=== PATIENT | male | born 2000 | race Caucasian/White ===

== ENCOUNTER 2019-07-16 19:03 | Emergency (ER) | payer BC, OTHER ==
[~2019-07-16] VITALS: Ht 175.3 cm; Wt 86.2 kg
[~2019-07-16 19:03] MED LIST: ALBIPROI; ALBIPROI INH; ALBU90OI; PSYL5.85P; Percocet 5-3251 EACH PO; [UNRECOGNIZED DRUG - REMARK]
[2019-07-16] MEDS ORDERED: Bactrim Ds Tab1 EACH PO (19:26)
== END 2019-07-16 19:32 | disposition home or self-care (01) ==
LOC: ER 19:03
DX: L02.213 Cutaneous abscess of chest wall (principal); L03.313 Cellulitis of chest wall; Z88.5 Allergy status to narcotic agent; Z88.0 Allergy status to penicillin; Z88.1 Allergy status to other antibiotic agents
CPT/HCPCS: 99283; A9270-GY

== ENCOUNTER 2019-07-20 18:24 | Emergency (ER) | payer BC, OTHER ==
[~2019-07-20] VITALS: Ht 177.8 cm; Wt 77.1 kg
[~2019-07-20 18:24] MED LIST changes: +Bactrim Ds Tab1 EACH PO
== END 2019-07-20 20:30 | disposition home or self-care (01) ==
LOC: ER 18:24
DX: T40.1X1A Poisoning by heroin, accidental (unintentional), initial encounter (principal); J45.909 Unspecified asthma, uncomplicated; Z88.0 Allergy status to penicillin; Z88.5 Allergy status to narcotic agent; Z88.1 Allergy status to other antibiotic agents
CPT/HCPCS: 99284

== ENCOUNTER 2019-09-09 01:52 | Emergency (ER) | payer BC, OTHER ==
[~2019-09-09] VITALS: Ht 175.3 cm; Wt 81.7 kg
[2019-09-09] MEDS ORDERED: Vibramycin100 MG PO (02:14)
== END 2019-09-09 02:38 | disposition home or self-care (01) ==
LOC: ER 01:52
DX: L02.211 Cutaneous abscess of abdominal wall (principal); Z88.5 Allergy status to narcotic agent; Z88.0 Allergy status to penicillin
CPT/HCPCS: 10061; 99283-25

== ENCOUNTER 2020-03-05 01:00 | Emergency (ER) | payer BC, OTHER ==
[~2020-03-05] VITALS: Ht 170.2 cm; Wt 77.1 kg
[~2020-03-05 01:00] MED LIST changes: +Vibramycin100 MG PO
[2020-03-05 02:13] LABS: BASOPHILS ABSOLUTE AUTO 0.04 K/mm3 (0.00-0.23); BASOPHILS PERCENT AUTO 0 % (0-2); EOSINOPHILS ABSOLUTE AUTO 0.17 K/mm3 (0.00-0.68); EOSINOPHILS PERCENT AUTO 1 % (0-6); Hematocrit 37.3 % (37.0-53.0); Hemoglobin 12.3 g/dL (13.5-17.5); IMMATURE GRAN ABSOLUTE AUTO 0.02 K/mm3 (0.00-0.10); IMMATURE GRAN PERCENT AUTO 0 % (0-1); LYMPHOCYTES ABSOLUTE AUTO 3.03 K/mm3 (0.84-5.20); LYMPHOCYTES PERCENT AUTO 24 % (21-46); MONOCYTES ABSOLUTE AUTO 1.24 K/mm3 (0.16-1.47); MONOCYTES PERCENT AUTO 10 % (4-13); Mean Corpuscular HGB 29.1 pg (26.0-34.0); Mean Corpuscular Volume 88 fL (80-100); Mean Platelet Volume 10.3 fL (9.1-12.4); NEUTROPHILS ABSOLUTE AUTO 8.12 K/mm3 (1.96-9.15); NEUTROPHILS PERCENT AUTO 64 % (41-73); Platelet Count 295 K/mm3 (150-400); RDW Coefficient Variation 12.4 % (11.7-14.2); RDW Standard Deviation 40.2 fL (35.1-46.3); Red Blood Cell Count 4.22 M/mm3 (4.30-5.90); White Blood Cell Count 12.62 K/mm3 (4.00-11.30)
[2020-03-05] MEDS ORDERED: Cleocin HCl300 MG PO (02:57)
== END 2020-03-05 03:08 | disposition home or self-care (01) ==
LOC: ER 01:00
PROVIDERS: Emergency Medicine
DX: L03.113 Cellulitis of right upper limb (principal); Z88.5 Allergy status to narcotic agent; Z88.0 Allergy status to penicillin; Z87.891 Personal history of nicotine dependence
CPT/HCPCS: 36415; 83605; 85025; 87040; 96374; 99283-25

== ENCOUNTER → 2023-02-08 | Outpatient (CLI) | payer BC, OTHER ==
[~2023-02-08] MED LIST changes: +Cleocin HCl300 MG PO
[2023-02-11 02:31] LABS: CHLAMYDIA TRACHOMATIS, NAA Negative (Negative)
== END | disposition home or self-care (01) ==
LOC: LAB 17:05 → LAB SHORT 17:05
PROVIDERS: Physician Assistant
DX: R36.9 Urethral discharge, unspecified (principal)
CPT/HCPCS: 87491; 87591